=== PATIENT | female | born 1970 | race Caucasian/White ===

== ENCOUNTER 2025-09-07 18:43 | Emergency (ER) | payer SELFPAY ==
--- OUTSIDE RECORDS SUMMARY | 2021-03-20 09:52 | XMS_ITS | Continuity of Care Document ---
Author Organization [facility] Address [address] [facility] [address] [place] [address] Phone Care Team Providers Care Baton Twirler Name Role Phone Zan [employer] MED[employer] SERGEANTNay Unavailable Unavailable Allergies, Adverse Reactions, Alerts Substance Reaction Status Criticality No Known Allergies Active No Inform ation Medications Medication Instructions Dosage Effective Dates (start - stop) Status Comments Zoloft 50 mg tablet take 1/2 tablet by oral route every day for one week then increase to one tablet daily - Active Diflucan 150 mg tablet take 1 tablet by oral route once - Active Procedures Procedure Date Covid19+Influ A&B Covid-19 [facility]ST[facility] Culture OFFICE VISIT/EST LEVEL III Medication Reviewed TOBACCO NON-USER PHQ2 Negative SCREEN MAMMO DOC REV PT SCRND [place] USE OFFICE VISIT/EST LEVEL III Medication Reviewed TOBACCO NON-USER URINE DIP Onsite NON AUTO W/0 MICRO Jul URINE CULTURE OFFICE VISIT/NEW LEVEL III Medication Reviewed PHQ2 Negative Advance Directives Directive Yes / No Effective Date File Name No Information Encounters Encounter Description Practice Location Reason(s) For Visit Diagnoses Date Provider Providers Copied on Encounter [facility], [address], [place], [place], [id number], [place] tel:[phone] [place] No Information 1 Zan [employer] Nay. [address] [facility], [place], [address], [place]. tel:[phone] OFFICE VISIT/EST LEVEL III [facility], [address] [place] [address] [address], [place], [place], [id number], [place] tel:[phone] [place] fatigue/ headache (chief complaint) Dietary counseling and surveillanceS uspected COVID-19 virus infectionBody mass index (BMI) 29.0-29.9, adult 1 Zan [employer] Nay. [address] [facility], [place], [address], [place]. tel:[phone] [facility], [address] [place] [address], [id number], [place] tel:[phone] [place] Mass of lower outer quadrant of right breast 0 Zan [employer] Nay. [address] [facility], [place], [address], [place]. tel:[phone] OFFICE VISIT/EST LEVEL III [facility], [address] [place] [address] Suite [facility], [place], [place], [id number], [place] tel:[phone] [place] breast lump (chief complaint) depression (chief complaint) Dietary counseling and surveillanceB reast noduleDepress ion with anxietyBody mass index (BMI) 29.0-29.9, adult 0 Zan [employer] Nay. [address] [facility], [place], [address], [place]. tel:[phone] [facility], [address] [place] [address] Suite [facility], [place], [place], [id number], [place] tel:[phone] [place] Encounter for screening mammogram for malignant neoplasm of breast 0 Zan [employer] Nay. [address] [facility], [place], [address], [place]. tel:[phone] [facility], [address] [facility] [address], [place], [place], [id number], [place] tel:[phone] [place] No Information Sep-3 0-202 0 Zan [employer] Nay. [address] [facility], [place], [address], [place]. tel:[phone] OFFICE VISIT/NEW LEVEL III [facility], [address] [facility] [address], [place], [place], [id number], [place] tel:[phone] [place] UTI (chief complaint) yeast infection (chief complaint) Dietary counseling and surveillanceD ysuriaUrinary tract infection with hematuria, site unspecifiedYe ast infectionBody mass index (BMI) 28.0-28.9, adult Sep-2 3-202 0 Zan [employer] Nay. [address] [facility], [place], [address], [place]. tel:[phone] Family History Family Member Type Diagnosis Age At Onset Mother Problem malignant neoplasm of liver Father Problem stroke Father Problem malignant neoplasm of lung Payers Payer name Insurance type Covered green party ID Authoriza kirstiejoshua(s) [employer] CV CI [id number] Social History Type Description Quantity Date Captured Comments Alcohol Use Details Unknown Caffeine Use Details Unknown Tobacco Use Status No Information Smoking Status No Information Sex Female Chief Complaint And Reason For Visit No Information Reason For Referral Reason For Referral No Information Plan Of Treatment Date Type Action Status Goal Tdap. Due on due Goal Zoster vaccine (1st). Due on due Goal Pap/HPV testing. Due on due Goal Influenza vaccine. Due on due Goal Fit test. Due on due Goal DNA Cologuard. Due on due Goal HIV Screen. Due on 21 due Goal Zoster vaccine (2nd). Due on due Goal Low dose CT. Due on due Goal Colonoscopy. Due on due Goal Lipid panel. Due on due Goal Mammogram. Due on due Goal Mammogram. Due on due Goal Tdap. Due on due Goal Lipid panel. Due on due Goal Fit test. Due on due Goal Influenza vaccine. Due on due Goal Colonoscopy. Due on due Goal HIV Screen. Due on due Goal DNA Cologuard. Due on due Goal Zoster vaccine (1st). Due on due Goal Zoster vaccine (2nd). Due on due Goal Pap/HPV testing. Due on due Goal Prescribed dietary intake co mpleted Goal Lipid panel. Due on due Goal Tdap. Due on due Goal Mammogram. Due on 2 due Goal Zoster vaccine (1st). Due on due Goal HIV Screen. Due on due Goal Colonoscopy. Due on due Goal Influenza vaccine. Due on due Goal Fit test. Due on due Goal Zoster vaccine (2nd). Due on due Goal DNA Cologuard. Due on due Goal Pap/HPV testing. Due on due Goal Pap/HPV testing. Due on due Goal Colonoscopy. Due on due Goal Zoster vaccine (). Due on due Goal Fit test. Due on due Goal DNA Cologuard. Due on due Goal Influenza vaccine. Due on due Goal HIV Screen. Due on due Goal Tdap. Due on due Goal Lipid panel. Due on due Goal Lifestyle education regardin g diet completed Goal Fit test. Due on due Goal Zoster vaccine (1st). Due on due Goal Influenza vaccine. Due on due Goal Colonoscopy. Due on due Goal Pap/HPV testing. Due on due Goal HIV Screen. Due on due Goal DNA Cologuard. Due on due Goal Tdap. Due on due Goal Lipid panel. Due on due Goal DNA Cologuard. Due on due Goal HIV Screen. Due on due Goal Pap/HPV testing. Due on due Goal Lipid panel. Due on due Goal Tdap. Due on due Goal Mammogram. Due on 0 due Goal Zoster vaccine (1st). Due on due Goal Influenza vaccine. Due on due Goal Colonoscopy. Due on 020 due Goal Fit test. 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 Patient does have many concerns of having to work around possible COVID. Is concerned with passing the virus to family and or others. breast lump Onset: 2 weeks a go. Symptom is aggravated by touch. Associated symptoms include nipple itching. Pertinent negatives include asymmetry, breast pain, clear discharge, dimpling, discharge, fever, greenish discharge and lymphadenopathy. Additional information: patient noticed a 2cm pea sized lump on right breast two weeks ago, does monthly breast exams, last mammogram was in 2016. depression This is an initi al visit. The patient reports functioning as very difficult. The patient presents with anxious/fearful thoughts, decreased need for sleep, depressed mood, difficulty staying asleep, diminished interest or pleasure, excessive worry, feelings of guilt and decreased libido but denies compulsive thoughts, difficulty concentrating, difficulty falling asleep, easily startled, fatigue, feelings of invulnerability, increased energy, increased libido, loss of appetite, paranoia, poor judgment, racing thoughts, restlessness or thoughts of or suicide. The patient denies any nausea, urinary frequency, vomiting and weight gain. Additional information: Patient has had some increased anxiety and depression, was previously on Zoloft for this in the past and it did seem to help, patient would like to try to go back on medication today,. yeast infection Patient did have symptoms of a yeast infection after taking an antibiotic for a dental procedure, did try otc one day treatment with no relief, explains she is still having the itching and the burning. UTI Date of initial symptoms: 08/14/2020. The patient describes it as burning and cloudy. Additional information: no history of interstitial cystitis, no history of irritable bowel, no history of pyelonephritis, no history of stones, history of UTIs and Patient has not had a UTI in some time.. UTI (comments) Patient explains she had dental work 2 weeks ago was placed on an antibiotics, had a yeast infection from this and took a one day treatment OTC from the pharmacy, a few days later did call the [facility] and was prescribed Bactrim for a UTI, patient explains she did not take the medication due to not wanting another yeast infection. Patient present today with continued burning and uti symptoms. Functional Status Date Functional Assessmen t No Information Instructions Date Instruction Additional Infor joss Patient is to self q uarantine at this time, is to rest, drink plenty of fluids and will call office if there is any worsening symptoms. Related to Suspected COVID-19 virus infection Prescribed dietary intake Relate d to Dietary counseling and surveillance Weight monitoring Related to tary counseling and surveillance Patient is to take m edication as prescribed, follow up in one month or sooner if the symptoms worsen or there are further concerns. Related to Depression with anxiety Patient to get breas t ultrasound and diagnostic mammogram. Related to Breast nodule Walk, do yoga, or an y exercise at least 3 times weekly Related to Depression with anxiety Exercise is the best medicine for depression/anxiety Related to Depression with anxiety Return to clinic in 3 months for continued monitoring Related to Depression with anxiety Use relaxation techn iques when feeling anxious Related to Depression with anxiety If meds make you sle epy, take in PM. If meds make you alert, take in AM Related to Depression with anxiety Take medication(s) as prescribed Related to Depression with anxiety If thoughts of hurti ng yourself or others, please call 911 or go to the ER Related to Depression with anxiety Weight monitoring Related to tary counseling and surveillance Lifestyle education regarding di et Related to Dietary counseling and surveillance It may take 4-6 week s for medicine to become fully effective Related to Depression with anxiety Take medication as p rescribed, ok to use otc medication on external area to relieve itching. Patient is to call office if there is any worsening symptoms or there is no improvement in symptoms. Related to Yeast infection Patient is to take m edication as prescribed, encourage increasing water intake. Call office for any worsening symptoms. Related to Urinary tract infection with hematuria, site unspecified Lifestyle education regarding di et Related to Dietary counseling and surveillance Weight monitoring Related to tary counseling and surveillance Assessments Type Assessment Date No Information Patient Care Teams Name Effective Dates (start - stop) Status Members No Information
--- OUTSIDE RECORDS SUMMARY | 2024-04-01 04:58 | XMS_ITS | Continuity of Care Document ---
Author Organization [facility] Address [address] [place] [address] Phone Care Team Providers Care Health Plan Manager Name Role Phone Awais LI, Vj Unavailable Unavailab le Allergies, Adverse Reactions, Alerts Substance Reaction Status Criticality No Known Allergies Active No Inform ation Medications Medication Instructions Dosage Effective Dates (start - stop) Status Comments atorvastatin 40 mg tablet take 1 tablet by oral route every day 40 MG - Active MEDICATION DOSE CHANGE, INCREASE FROM 20MG TO 40MG PRESERVISION AREDS (unknown strength) Not Available - Active Procedures Procedure Date PREV VISIT, EST, AGE 40-64 ROUTINE VENIPUNCTURE OFFICE/OUTPATIENT VISIT, EST ROUTINE VENIPUNCTURE OFFICE/OUTPATIENT VISIT, EST ROUTINE VENIPUNCTURE OFFICE/OUTPATIENT VISIT, EST CHIROPRACTIC MANIPULATION Panoramic Film Comp Oral Eval New/estab Patient 2020 Oral Hygiene Instruction Intraoral-periapical 1st Film Orbbejatl-fewscptnrs-wspd Additional March Mmdpnnpke-pueykltida-xnjt Additional March Rpbyecloe-swfqriszhz-fpcz Additional March Cnoiqzpwz-cleqswyuzi-qyns Additional March Umkcnevyq-uzxebekxpa-xcgj Additional March Qkaqcclaj-aswhwtlpoq-gmoo Additional March Diuwfhrxt-jccomjjlku-eqks Additional March PREV VISIT, EST, AGE 40-64 SCREENING COLONOSCOPY ROUTINE VENIPUNCTURE OFFICE/OUTPATIENT VISIT, [facility] Advance Directives Directive Yes / No Effective Date File Name No Information Encounters Encounter Description Practice Location Reason(s) For Visit Diagnoses Date Provider Providers Copied on Encounter [facility], [address] [place] [address], [id number], tel:[phone] [facility] No Information 4 Awais Zabala. [address] [place] [address], [id number] , [place]. tel:[phone] [facility], [address] [place] [address], [id number], tel:[phone] [facility] No Information 3 Awais Zabala. [address] [place] [address], [id number] , [place]. tel:[phone] PREV VISIT, EST, AGE 40-64 [facility], [address] [place] [address], [id number], [place] tel:[phone] [facility] F/U HTN (chief complaint) Lab Draw (chief complaint) Encounter for general adult medical examination without abnormal findingsNeed for dental careScreening for HIV (human immunodeficiency virus)Body mass index [BMI] 28.0-28.9, adult 3 Awais Zabala. [address] [place] [address], [id number] , [place]. tel:[phone] OFFICE/OUTPAT IENT VISIT, EST [facility], [address] [place] [address], [id number], [place] tel:[phone] [facility] Rash to face (chief complaint) hyperlipid emia (chief complaint) Rash (chief complaint) Body mass index [BMI] 28.0-28.9, adultRashHyperlipid emia, unspecified hyperlipidemia typeElevated blood pressure reading 3 Awais Zabala. [address] [place], [place], [id number] , [place]. tel:[phone] [facility], [address] [place] [address], [id number], [place] tel:[phone] [facility] lab work (chief complaint) Hyperlipidemia, unspecified hyperlipidemia type 1 Awais Zabala. [address] [place], [place], [id number] , [place]. tel:[phone] OFFICE/OUTPAT IENT VISIT, [facility], [address] [place] [address], [id number], [place] tel:[phone] [facility] med refill (chief complaint) depression (chief complaint) hyperlipid emia (chief complaint) lab work (chief complaint) Body mass index [BMI] 29.0-29.9, adultHyperlipidemia , unspecified hyperlipidemia typeModerate episode of recurrent major depressive disorderElevated liver enzymesEncounter for screening mammogram for malignant neoplasm of breast 1 Awais Zabala. [address] [place] [address], [id number] , [place]. tel:[phone] OFFICE/OUTPAT IENT VISIT, [facility], [address] [place] [address], [id number], [place] tel:[phone] [facility] Review Labs (chief complaint) depression (chief complaint) hyperlipid emia (chief complaint) Body mass index [BMI] 29.0-29.9, adultModerate episode of recurrent major depressive disorderHyperlipide evie, unspecified hyperlipidemia type 1 Awais Zabala. [address] [place] [address], [id number] , [place]. tel:[phone] [facility], [address] [place] [address], [id number], [place] tel:[phone] [facility] lumbar spine (chief complaint) lumbar spine (chief complaint) Segmental and somatic dysfunction of lumbar regionLow back painSegmental and somatic dysfunction of thoracic region 1 Masood Andrews. [address] [place], [place], [id number] , [place]. tel:[phone] [facility], [address] [place], [place], [id number], [place] tel:[phone] Dental Clinic DN (chief complaint) Encounter for screening for dental disorders 1 Noe Ralph. [address] [place], [address], [place]. tel:[phone] PREV VISIT, EST, AGE 40-64 [facility], [address] [place], [place], [id number], [place] tel:[phone] [facility] annual exam (chief complaint) Encounter for gynecological examination (general) (routine) without abnormal findingsColon cancer screeningBody mass index [BMI] 29.0-29.9, adult 1 Neil [facility]. [address] [place], [place], [id number] , [place]. tel:[phone] [facility], [address] [place], [place], [id number], [place] tel:[phone] [facility] Elevated liver enzymes 1 Awais Zabala. [address] [place], [place], [id number] , [place]. tel: [phone] [facility], [address] [place] [address], [id number], [place] tel:[phone] [facility] Elevated liver enzymes Feb-3 1 Awais Zabala. [address] [place], [place], [id number] , [place]. tel:[phone] [facility], [address] [place] [address], [id number], [place] tel:[phone] [facility] lab draw (chief complaint) Encounter for annual health examination 1 Awais Zabala. [address] [place], [place], [id number] , [place]. tel:[phone] OFFICE/OUTPAT IENT VISIT, [facility], [address] [place], [place], [id number], [place] tel:[phone] [facility] establish care (chief complaint) depression (chief complaint) Body mass index [BMI] 29.0-29.9, adultModerate episode of recurrent major depressive disorderColon cancer screeningEncounter for annual health examination 1 Awais Zabala. [address] [place], [place], [id number] , [place]. tel:[phone] Family History Family Member Type Diagnosis Age At Onset Mother Problem Mental illness Problem Family history o f malignant neoplasm of liver Maternal grandmother Problem malignant n eoplasm of breast in first degree relative Mother Problem depression Problem Family history o f malignant neoplasm of lung Father Problem Colon cancer Immunizations Vaccine Date Status Comments influenza, injectable, quadr ivalent, preservative free administered Source: Other Regist ry COVID-19, mRNA, LNP-S, bival ent booster, PF, 50 mcg/0.5 mL or 25mcg/0.25 mL dose administered Source: Other Regist ry COVID-19, mRNA, LNP-S, PF, 3 0 mcg/0.3 mL dose administered Source: Other Regist ry COVID-19, mRNA, LNP-S, PF, 3 0 mcg/0.3 mL dose administered Source: Other Regist ry COVID-19, mRNA, LNP-S, PF, 3 0 mcg/0.3 mL dose administered Source: Other Regist ry Payers Payer name Insurance type Covered republican ID Pavithraquirino kirstiejoshua(s) [place] Medicaid [facility] [id number] Medicaid [facility] [id number] Social History Type Description Quantity Date Captured Comments Alcohol Use Details Unknown Caffeine Use Details Unknown Tobacco Use Status No Information Smoking Status No Information Sex Female Sexual Orientation Straight or heterosexual Gender Identity Female Chief Complaint And Reason For Visit No Information Reason For Referral Reason For Referral No Information Plan Of Treatment Date Type Action Status Goal Depression scree jose. Due on due Goal HPV. Due on due Goal Mammogram. Due on due Goal Tdap. Due on due Goal Hepatitis C scre ening. Due on due Goal Tdap Vaccine. Due on 2023 due Goal Unhealthy drug u se screening. Due on due Goal Colonoscopy. Due on due Goal PRAPARE ASSESSMENT. Due on M due Goal Influenza vaccine. Due on due Goal Zoster vaccine ( ). Due on due Goal Lipid panel. Due on due Goal Hep A. Due on du e Goal Depression scree jose. Due on due Goal Mammogram. Due on due Goal Colonoscopy. Due on due Goal Tdap Vaccine. Due on 2022 due Goal Zoster vaccine ( ). Due on due Goal PRAPARE ASSESSMENT. Due on due Goal Tdap. Due on due Goal Influenza vaccine. Due on due Goal Lipid panel. Due on due Goal Lifestyle education regardin g diet completed Goal Depression scree jose. Due on due Goal Mammogram. Due on due Goal Colonoscopy. Due on 031 due Goal Tdap Vaccine. Due on 2022 due Goal Zoster vaccine ( ). Due on due Goal PRAPARE ASSESSMENT. Due on due Goal Tdap. Due on due Goal Influenza vaccine. Due on due Goal Lipid panel. Due on 026 due Goal Hep A. Due on du e Goal Dietary manageme nt education, guidance, and counseling completed Goal Dietary manageme nt education, guidance, and counseling completed Goal Lifestyle education regardin g diet completed Goal Dietary manageme nt education, guidance, and counseling completed Goal Dietary manageme nt education, guidance, and counseling completed Referral Ordered: Referrals: Dentistry. Evaluate and treat ordered Referral Ordered: MAMMOGRAM, SCREENING Bilateral Appointment date/timeframe: 11/28/2021 ordered Referral Ordered: SCREENING COLONOSCOPY ordered Referral Ordered: Referrals: Gastroenterology ordered Referral Ordered: US Exam Of ABD Limited liver ordered Referral Ordered: Referrals: Gastroenterology. Evaluate and treat ordered Future Order: Lab Order Hepatiti s Panel (4) ([id number]), Sent on: Sent History Of Present Illness Encounter Date Complaint History Of Prese nt Illness Lab Draw Labs drawn from right hand, successful in one attempt. Patient tolerated well.//Aaliyah CARR F/U HTN Scheduled with S usan in JanuaryDental scheduled in March//Aaliyah RNAnnual health examBP elevated on prior acute visit.Scheduled with [facility]OL PROGRAMMER at [facility] in January, mammogram due at that timeLast dental visit in 2020 open to reschedulingno acute concerns or questions todaytakes statin for elevate lipids without issuesBoth patient and have made changes to diet for health purposes.Vladimir LIA Rash to face Presents with c/ o rash to face and under chin for about 10-14 days. Blotchy redness noted and pt c/o itching also. States she is out of both of her medications and needs refills. Preeti Valladares RN hyperlipidemia Risk factors inc lude age over 50 and sedentary life style. The patient is adhering to diet and exercise for their hyperlipidemia. The patient is not adhering to medication and follow-up for their hyperlipidemia. Hyperlipidemia management includes statins. Pertinent negatives include chest pain, dizziness, increased fatigue, joint pain, myalgia, palpitations and transient weakness. Additional information: Vladimir [employer]. Rash The patient pres ents for Rash. This episode began 2 weeks ago. The symptom(s) are described as moderate, unchanged and occurs daily. Affected area(s) include face and neck. The patient describes the affected area(s) as itchy and red. The symptoms are not associated with contact with chemicals, contact with plants, new perfume, new skin soaps/lotions, rash began before age 2, recent medicines, recent travel and stress. Aggravating factors include heat and skin trauma/friction. Denies relieving factors. Associated symptoms include dry skin, edema, erythema (skin) and pruritus. Pertinent negatives include bleeding, bleeding skin, cracking, crusting, fatigue, hypopigmentation, myalgia, painful rash, pharyngitis, scaling and urticaria. There are no other household members with similar symptoms. Relevant history negative for history of allergies, history of asthma and history of atopic dermatitis. Additional information: Vladimir [employer]. lab work Lab work obtaine d successfully in R hand after 1st attempt. No complications at this time. Kyrie Akhtar RN med refill Pt here today fo r med refill. Pt states that depression has been stable while on medication. Pt concerned with elevated b/p readings when she donates plasma. Pt has record with her that shows fluctuations in b/p. Pt states that she has been unable to donate the past 5x she's tried d/t high b/p. Pt has a family hx of strokes. No other complaints at this time. Kyrie Akhtar RN lab work Lab work obtaine d successfully in R hand after 1st attempt. No complications at this time. Kyrie Akhtar RN depression This is a follow up visit. Related symptoms are well controlled. The patient reports functioning as not difficult at all. The patient does not present with anxious/fearful thoughts, depressed mood, difficulty falling asleep, difficulty staying asleep, restlessness or thoughts of or suicide. The patient's risk factors include history of depression. The patient denies any aggravating factors. The patient's relieving factors are a good response to medication. Additional information: Vladimir FITZGERALD. hyperlipidemia Risk factors inc lude age over 50 and sedentary life style. The patient is adhering to medication and follow-up for their hyperlipidemia. The patient is not adhering to diet and exercise for their hyperlipidemia. Pertinent negatives include chest pain, diaphoresis, dizziness, increased fatigue, joint pain and myalgia. Additional information: Vladimir fitzgerald. depression This is a follow up visit. Related symptoms are fairly controlled. There is improvement of initial symptoms. The patient reports functioning as somewhat difficult. The patient presents with depressed mood but denies anxious/fearful thoughts, compulsive thoughts, decreased need for sleep, difficulty falling asleep, difficulty staying asleep, diminished interest or pleasure, excessive worry, fatigue, feelings of guilt, feelings of invulnerability, increased energy, loss of appetite, poor judgment, racing thoughts, restlessness or thoughts of or suicide. The patient's risk factors include history of depression and relationship problems. The patient's risk factors exclude financial worries, social isolation, unemployment and victim of abuse or violence. The depression is aggravated by conflict or stress. The patient's relieving factors are a fair response to medication (sertraline). Additional information: Vladimir FITZGERALD. hyperlipidemia The onset of hyp erlipidemia was 2020 and is a new diagnosis. Risk factors include age over 50 and sedentary life style. Pertinent negatives include chest pain, claudication, dizziness, dyspnea, heartburn, joint pain, myalgia, palpitations, transient weakness, vision loss and vomiting. 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 Review Labs Requests dosage increase of sertraline. Says it is working just thinks it could be a little more helpful, no other issues. Already has received Covid Vaccine.//JWHupp lumbar spine C/O flare up of chronic low back pain extending into SI's. Has been off work for 2.5 months and has had increased soreness since.Sx are the result of regular ADL'S. Pain is primarily at L3-L5 PVM on the Rt. & Lt. and extends to the SI joint, Rt. & Lt. Pain is local, dull, and without radiation to the lower extremities. No sensory or motor changes noted. Symptoms present with a pain scale of 5 (VAS = 1-10). Increase in pain with movement/ROM and ADL'S. Some decrease in symptoms with rest. No change in the pain pattern from the onset of symptoms. Pain pattern is as prior times. lumbar spine DN DN annual exam : 5. Sophy ty: Term: 3. spontaneous: 2. Livin. The patient states she uses hysterectomy for control. Her menses is absent. Negative for dysmenorrhea and menorrhagia. Negative for: breast discharge, breast lump(s), breast pain and breast self exam. She does not drink alcohol. Additional information: Patient is here for annual exam. has already completed her mammogram for the year. Desires to get referral for colonoscopy. Has had a partial hysterectomy, but still has her ovaries. Does have mild symptoms of menopause and declines medication.. lab draw patient here for fasting labs and urine, labs obtained from R hand. Patient tolerated well. Chadd Hernandez. BRUNO. establish care Patient here to establish care. Patient just moved back to the area. Patient need refill on her zoloft. Patient was up to 1 QD after increasing from 1/2 QD. Patient was back to 1/2 QD because she was breaking the tablets in half to make it last until she could be seen. Schedules to see Salazar. No colonoscopy yet. Patient hasn't had labs in 13+ years. Patient became tearful during PHQ-9. States she is tired of crying all the time. Patient has been for 32 yrs and she feels that she is always wrong.. He is always right. No other issues at this time.LexiChivo. depression This is an initi al visit. Related symptoms are poorly controlled. The patient reports functioning as somewhat difficult. The patient presents with depressed mood and fatigue but denies anxious/fearful thoughts, excessive worry, poor judgment, racing thoughts, restlessness or thoughts of or suicide. The depression is aggravated by conflict or stress and off of medications. The patient's relieving factors are a good response to medication (zoloft). Additional information: PHQ-9 score 13. Off sertraline for 1 month, previously on for 1 month working well at 50mg. RGonzales [employer]. Functional Status Date Functional Assessmen t No Information Instructions Date Instruction Additional Infor joss 1. [place] teeth twice daily2. Floss nightly3. Dental cleanings every 6 months4. Fluoride mouth wash once daily5. Remain established with dental practice6. Avoid sugar containing beverages7. Avoid carbonated beverages8. DENTAL SCHEDULED Related to Need for dental care 1. HIV PENDING Related to Shivani garcia for HIV (human immunodeficiency virus) 1. Low fat, low adde d sugar, and well balanced diet2. Good sleep hygiene with adequate sleep time3. 30-45 minutes of moderate intensity exercise 3-5 days per week4. Continue regular preventative visits with dental provider5. Ensure all preventative screening is completed and up to dateFOLLOW UP WITH MOSHE STEPHEN SCHEDULED FOR PAP AND MAMMOGRAM6. Follow up annually or as needed7. Ensure you up date your influenza and COVID-19 vaccinations as recommended. Related to Encounter for general adult medical examination without abnormal findings Lifestyle education regarding di et Related to Body mass index [BMI] 28.0-28.9, adult Giving encouragement to exercise Related to Body mass index [BMI] 28.0-28.9, adult 1. Take medications as prescribed.2. Diet limit intake of meals high in LDL cholesterol and increase intake of HDL containing foods.3. Increase fiber to 5-10 grams per day4. Exercise at least 30 minutes 3-5 times per week of active exercise5. No nicotine or smoking6. Follow up 1 month Related to Hyperlipidemia, unspecified hyperlipidemia type 1.Follow up in 1 mon th2. Monitor blood pressure at home regularly and record for next follow up visit.3. Reduce sodium intake to 1 tsp (2300mg) per day maximum 4. Participate in moderate intensity aerobic exercise 5 days per week 30 minutes5. No nicotine6. Alcohol in moderation7. Decrease weight Related to Elevated blood pressure reading 1. Prednisone as ord ered2. Benadryl PRN3. Follow up 1 month Related to Rash Giving encouragement to exercise Related to Body mass index [BMI] 28.0-28.9, adult Dietary management e ducation, guidance, and counseling Related to Body mass index [BMI] 28.0-28.9, adult 1. Mammogram ordered Related to Encounter for screening mammogram for malignant neoplasm of breast 1. Redraw LFT Related to Talala austin liver enzymes 1. Take medications as prescribed.2. Diet limit intake of meals high in LDL cholesterol and increase intake of HDL containing foods.3. Exercise at least 30 minutes 5 times per week of active exercise4. Avoid smoke and/or quit smoking5. Follow up 6 months. Related to Hyperlipidemia, unspecified hyperlipidemia type 1. Take medications as prescribed.2. Continue or consider counseling3. Exercise regularly4. practice good sleep hygiene.5. Use [facility] Hotline for any suicidal or homicidal ideations6 Follow up 6 months Related to Moderate episode of recurrent major depressive disorder Giving encouragement to exercise Related to Body mass index [BMI] 29.0-29.9, adult Dietary management e ducation, guidance, and counseling Related to Body mass index [BMI] 29.0-29.9, adult 1. Take medications as prescribed.2. Continue or consider counseling3. Exercise regularly4. practice good sleep hygiene.5. Use [facility] Hotline for any suicidal or homicidal ideations6 Follow up 3 months Related to Moderate episode of recurrent major depressive disorder 1. Take medications as prescribed.2. Diet limit intake of meals high in LDL cholesterol and increase intake of HDL containing foods.3. Exercise at least 30 minutes 5 times per week of active exercise4. Avoid smoke and/or quit smoking5. Follow up 3 MONTHS FOR RECHECK OF LIPIDS AND LFTs Related to Hyperlipidemia, unspecified hyperlipidemia type Lifestyle education regarding di et Related to Body mass index [BMI] 29.0-29.9, adult Giving encouragement to exercise Related to Body mass index [BMI] 29.0-29.9, adult Encouraged monthly B SE. Recommend calcium 1000mg QD. Encouraged good dietary intake and exercise. Laboratory specimens sent to lab. Patient to call in 2 weeks if desires results.Will request mammogram to add to chart. Related to Encounter for gynecological examination (general) (routine) without abnormal findings Desires colonoscopy Related to Lydia avilaon cancer screening Giving encouragement to exercise Related to Body mass index [BMI] 29.0-29.9, adult Dietary management e ducation, guidance, and counseling Related to Body mass index [BMI] 29.0-29.9, adult 1. Take medications as prescribed.2. consider counseling- refuses at this time3. Exercise regularly4. practice good sleep hygiene.5. Use [facility] Hotline for any suicidal or homicidal ideations6 Follow up 2 months Related to Moderate episode of recurrent major depressive disorder Dietary management e ducation, guidance, and counseling Related to Body mass index [BMI] 29.0-29.9, adult Giving encouragement to exercise Related to Body mass index [BMI] 29.0-29.9, adult Assessments Type Assessment Date No Information Patient Care Teams Name Effective Dates (start - stop) Status Members No Information
[2025-09-07] VITALS (16 sets, daily range): BP systolic 106–126; BP diastolic 66–79; PULSE 72–77; TEMP 36.6; O2SAT 96–99; BMI 24.9
--- NOTE | 2025-09-07 19:24 | ED.GENADUL1 ---
HPI HPI - General Adult General Chief complaint: Back Pain/Injury Stated complaint: Upper Back Pain Time Seen by Provider: 09/07/25 19:18 Source: patient Source information: Pt states no known TAYO, but has started gym exercise about one month ago. She awoke with L shoulder blade pain. Onset this AM Mode of arrival: walk-in History of Present Illness HPI narrative: pain right scapula area. States this AM she woke up with the pain. Increased pain when she turns her head to the left and when she raises her left arm the same site has increased pain. Pain is not pleuritic. No chest pain or dyspnea. No fever. Not able to recall any injury Related Data Home Medications ?Medication ?Instructions ?Recorded ?Confirmed bupropion HCl 75 mg tablet mg PO 09/07/25 meloxicam 15 mg tablet mg 09/07/25 naltrexone 50 mg tablet mg 09/07/25 Allergies Allergy/AdvReac Type Severity Reaction Status Date / Time No Known Drug Allergies Allergy Verified 09/07/25 19:20 Opioid HPI Opioid Management Most Recent Opioid Data: Last Pain Scale 2 Today, 21:02 Last ED Pain Assessment Today, 20:25 Review of Systems ROS Status of ROS 10 or more systems reviewed and unremarkable except as noted in history and below PFSH PFSH Social History Little interest or pleasure in doing things: not at all Feeling down, depressed, or hopeless: not at all Exam Constitutional Vital Signs, click to edit/add: Last Vital Signs Temp 97.8 F 09/07/25 19:12 Pulse 72 09/07/25 19:51 Resp 18 09/07/25 19:51 BP 125/79 09/07/25 20:00 Pulse Ox 97 09/07/25 20:20 O2 Del Method Room Air 09/07/25 19:12 Common normals: no apparent distress, average body habitus, oriented x3, no limitations, healthy appearing, alert and well nourished [facility] Common normals: normocephalic and head/scalp atraumatic Eye Common normals: PERRL, EOMs intact bilaterally and conjunctivae normal Chest Common normals: inspection of chest normal Respiratory Common normals: normal respiratory effort, no retractions, no use of accessory muscles and clear to auscultation bilaterally Cardio Common normals: regular rate, regular rhythm, S1 normal heart sound and S2 normal heart sound GI Common normals: Normal to inspection, nondistended, normoactive bowel sounds present, soft to palpation and non-tender Back & Pelvis Common normals: no CVA tenderness and thoracic and lumbar spine normal to inspection Back image (female):  1. tender area Extremity Common normals: normal to inspection Other: when she raises her left arm she has increased pain of her left back Neuro Common normals: oriented x3, CN's II-XII intact bilaterally, moves all extremities, no focal motor deficits and no sensory deficits noted Psych Appearance: grossly normal Course Vital Signs Vital signs: Vital Signs Temperature 97.8 F 09/07/25 19:12 Pulse Rate 77 09/07/25 19:12 Respiratory Rate 16 09/07/25 19:12 Blood Pressure 106/66 09/07/25 19:12 Pulse Oximetry 97 09/07/25 19:12 Oxygen Delivery Method Room Air 09/07/25 19:12 Temperature 97.8 F 09/07/25 19:12 Pulse Rate 72 09/07/25 19:51 Respiratory Rate 18 09/07/25 19:51 Blood Pressure 125/79 09/07/25 20:00 Pulse Oximetry 97 09/07/25 20:20 Oxygen Delivery Method Room Air 09/07/25 19:12 Medical Decision Making MDM Narrative Medical decision making narrative: presents with musculoskeletal left thoracic pain overlying the left scapula. No injury. site is tender. Pain increases when she turns her head or raises her left arm. Patient appears muscular. cxray WNL. CBC and inflamatory markers neg. Patient treated with solumedrol and orphenadrine and she is feeling better. Pain down to 2/10. She is discharged home with prednisone and nroflex. Advsised to follow up with her doctor for recheck Lab Data Labs: Lab Results 09/07/25 Range/Units 19:48 WBC 10.9 (4.0-11.0) 10^3/uL RBC 4.25 (4.20-5.40) 10^6/uL Hgb 14.0 (12.0-16.0) g/dL Hct 39.7 (36.0-48.0) % MCV 93.4 (81.0-99.0) fL MCH 32.9 (26.7-34.0) pg MCHC 35.3 H (29.9-35.2) g/dL RDW 12.1 (11.0-15.0) % Plt Count 280 (150-450) 10^3/uL MPV 9.5 (9.5-13.5) fL Neut % (Auto) 53.7 (43.0-75.0) % Lymph % (Auto) 30.1 (20.5-60.0) % [place] % (Auto) 11.4 (1.7-12.0) % Eos % (Auto) 3.9 (0.9-7.0) % Baso % (Auto) 0.6 (0.2-2.0) % Neut # (Auto) 5.8 (1.4-6.5) 10^3/uL Lymph # (Auto) 3.3 (1.2-3.8) 10^3/uL [place] # (Auto) 1.2 H (0.3-0.8) 10^3/uL Eos # (Auto) 0.4 (0.0-0.7) 10^3/uL Baso # (Auto) 0.1 (0.0-0.1) 10^3/uL Abs Immat Gran (auto) 0.03 (0.00-0.03) 10^3/uL Imm/Tot Granulo (auto) 0.3 (0.0-0.5) % ESR 15 (<=30) mm/hr D-Dimer 0.21 (<=0.59) mg/L FEU Sodium 144 (136-145) mmol/L Potassium 3.6 (3.5-5.1) mmol/L Chloride 107 (98-107) mmol/L Carbon Dioxide 27.1 (21.0-32.0) mmol/L Anion Gap 13.5 BUN 19.0 H (7.0-18.0) mg/dL Creatinine 0.71 (0.55-1.02) mg/dL Est GFR ( Amer) >60 (>=60 mL/min/1.73m^2) Est GFR (Non-Af Amer) >60 (>=60 mL/min/1.73m^2) BUN/Creatinine Ratio 26.8 Glucose 119 H (74-106) mg/dL Calcium 9.1 (8.5-10.1) mg/dL Troponin I High Sens 4.0 (4.0-51.3) pg/mL C-Reactive Protein <0.50 (<=0.50) mg/dL Discharge Plan Discharge Chief Complaint: Back Pain/Injury Clinical Impression: Thoracic back pain Patient Disposition: Home, Self-Care Prescriptions / Home Meds: No Action meloxicam 15 mg tablet naltrexone 50 mg tablet bupropion HCl 75 mg tablet PO Print Language: Setswana Instructions: Thoracic Pain (ED) Additional Instructions: follow up with your doctor in the next couple of days for recheck Referrals: Physician,Non-Staff, MD [Physician] - 1 week
--- NOTE | 2025-09-07 19:28 | XR_ITS ---
[place] [id number] Patient Name: XUAN FLORES MRN: [id number] date: 1970 Sex: F Assigned Patient Location: ED.MAIN Current Patient Location: ED.MAIN Accession/Order Number: [id number] Exam Date: 09/07/2025 19:40 Report Date: 09/07/2025 20:23 At the request of: VAISHALI HEBERT MD Procedure: XR chest 2V XR chest 2V 09/07/2025 7:42 PM SIGNS AND SYMPTOMS: ^thoracic back pain PROTOCOL: Frontal and lateral radiograph of the chest COMPARISON: None FINDINGS: The trachea is midline. The heart and mediastinal structures are within normal limits. The lung parenchyma is clear. The bony thorax is intact. Mild degenerative changes are noted in the thoracic spine. Degenerative changes are also noted in the right shoulder. XR/XR chest 2V IMPRESSION: No acute cardiopulmonary pathology. Impression dictated by: Hammad Marion M.D. 09/07/2025 8:23 PM Dictation Location: [place] [id number] Electronically authenticated by: [id number] Y Date: 09/07/2025 20:23
--- NOTE | 2025-09-07 19:38 | PC.NURSE ---
this patient complains of left upper back onset this morning, this patient does admit of starting lifting weights 1 month ago and yesterday did a back workout. this patient voices no other complaints, needs and shows no signs of distress
[2025-09-07] MEDS: METHYLPREDNISOLONE SOD SUCC PF 125 MG/2 ML VIAL IVP (19:56)
[2025-09-07] MEDS: ORPHENADRINE 60 MG/2 ML VIAL IV (19:56)
[2025-09-07 19:58] LABS: Hematocrit 39.7 % (36.0-48.0); Hemoglobin 14.0 g/dL (12.0-16.0); Immature Granulocytes Abs Auto 0.03 10^3/uL (0.00-0.03); Immature Granulocytes Pct Auto 0.3 % (0.0-0.5); Lymphocytes Absolute Auto 3.3 10^3/uL (1.2-3.8); Mean Corpuscular HGB Conc 35.3 g/dL (29.9-35.2); Mean Corpuscular Hemoglobin 32.9 pg (26.7-34.0); Mean Corpuscular Volume 93.4 fL (81.0-99.0); Platelet Count 280 10^3/uL (150-450); Red Blood Count 4.25 10^6/uL (4.20-5.40); White Blood Count 10.9 10^3/uL (4.0-11.0)
[2025-09-07 20:21] LABS: Anion Gap 13.5; Blood Urea Nitrogen 19.0 mg/dL (7.0-18.0); Calcium 9.1 mg/dL (8.5-10.1); Carbon Dioxide 27.1 mmol/L (21.0-32.0); Chloride 107 mmol/L (98-107); Estimated GFR (African America >60 (>=60 mL/min/1.73m^2); Estimated GFR (Non-African Ame >60 (>=60 mL/min/1.73m^2); Glucose 119 mg/dL (74-106); Potassium 3.6 mmol/L (3.5-5.1); Sodium 144 mmol/L (136-145)
--- NOTE | 2025-09-07 21:18 | PC.NURSE ---
i gave this patient verbal and written discharge orders along with 2Rx and 1 work note and this patient voices yes to understanding these. at time of discharge this patient voices no concerns, needs and shows no signs of distress
== END 2025-09-07 21:18 | disposition home or self-care (01) ==
PROVIDERS: Emergency Provider Internal Medicine; PCP Family Medicine
DX: M54.6 Pain in thoracic spine (principal)
CPT/HCPCS: 36415; 71046; 80048; 84484; 85025; 85378; 85652; 86140; 96374; 96375; 99285; J2360; J2919